=== PATIENT | female | born 1940 | race Caucasian/White ===

== ENCOUNTER 2023-02-20 07:19 | Observation (INO) ==
--- NOTE | 2023-01-22 14:39 | PAT Medication Instructions ---
Medication Instructions Date of Service January 22, 2023 Home Medications amlodipine 5 mg tablet 5 mg PO QAM aspirin 81 mg capsule 81 mg PO QAM atorvastatin 40 mg tablet 40 mg PO QAM calcium carbonate 500 mg-vitamin D3 3.125 mcg (125 unit) tablet 1 tab PO QAM DO NOT take the morning of surgery calcium carbonate 500 mg-vitamin D3 3.125 mcg (125 unit) tablet 1 tab PO QAM Take morning of surgery With a small sip of water, OTHERWISE NOTHING TO EAT OR DRINK AFTER MIDNIGHT: amlodipine 5 mg tablet 5 mg PO QAM aspirin 81 mg capsule 81 mg PO QAM (unless directed otherwise by surgeon) atorvastatin 40 mg tablet 40 mg PO QAM Other Notes If you have any questions please call us at [phone] or [phone] or [phone] or [phone]
--- NOTE | 2023-01-31 09:39 | Anesthesiology Consultation ---
Date of Service January 31, 2023 Assessment & Plan (1) Encounter for pre-operative examination: - COVID screening: Per assessment on 01/31: No known COVID-19 positive contacts or current COVID-19 related symptoms. Travel screen negative. Patient vaccinated. At surgeon discretion if preop Covid testing being done. - Outpatient joint assessment: Pt currently scheduled for inpatient pathway. If surgeon requests review for outpatient joint pathway, patient is not recommended candidate for outpatient joint program from anesthesia standpoint. - Surgery time: Patient states that she travels from far and surgery time would dictate whether or not she would not to travel the day before/get a hotel prior to surgery. Per iW[facility] at OR, surgeon's office arranges surgery order/time. Cyndi at surgeon's office made aware of patient's travel concerns. She states their office will coordinate surgery timing with patient. - Cardiology visit (01/30/23): "ECG is basically unchanged from study done 12/20/2021 ECG done today indicates sinus rhythm with PVCs, heart rate 60. LVH, NC WP, and nonspecific ST changes are noted. ECG is basically unchanged from study done 12/20/21. The patient does have history of abnormal ECG as well as stress test. She did have coronary CTA done on 10/28/18 With calcium score of 17. She was noted to have 50% stenosis in the mid LAD.. Echocardiogram from 07/10/2018 indicated a normal EF at 55 to 60%. She is currently asymptomatic. Cardiac testing is not required prior to surgery.. Patient would be considered low cardiovascular risk candidate. Do not recommend further invasive or noninvasive cardiac testing procedures prior to proceeding with knee replacement ." Chart Review Chart Review: Acceptable Risk for Surgery and Patient seen in Pre Admission Testing Teaching & Discussion Pre-Anesthesia Teaching/Discussion Notes: Instructed NPO after midnight before surgery,except medications with 15 cc of water. Medication instructions provided according to the PAT guidelines. History Surgery Operation Date: 02/20/23 13:20 Proposed Procedures p Right Total Knee Arthroplasty - Mars Cleveland DO Height/Weight Height: 5 ft 4 in Weight: 72 kg Allergies Allergy/AdvReac Type Severity Reaction Status Date / Time codeine AdvReac Intermediate Heart Verified 01/31/23 10:04 racing Medications Home Medications Medication Instructions Recorded Confirmed Last Taken amlodipine 5 mg tablet 5 mg PO QAM 01/22/23 01/22/23 Unknown aspirin 81 mg capsule 81 mg PO QAM 01/22/23 01/22/23 Unknown atorvastatin 40 mg tablet 40 mg PO QAM 01/22/23 01/22/23 Unknown calcium carbonate 500 mg-vitamin 1 tab PO QAM 01/22/23 01/22/23 Unknown D3 3.125 mcg (125 unit) tablet Past Medical History Medical History History of left bundle branch block (LBBB) Per cardiology records HTN (hypertension) Follows with [facility] cardiology Hyperlipidemia Exercise / Class Metabolic Activity II 4-5 Yardwork/Stairs/Walk up hill (one FS (no CP, no SOB)) Past Family History Family History Other No family history of adverse response to anesthesia Past Surgical History Surgical History History of lumbar surgery Hx of arthroscopic knee surgery Hx of cholecystectomy + APPENDECTOMY Hx of colonoscopy Hx of tubal ligation Past Anesthesia History No Hx of Anesthesia Complications and No Family Hx of Anesthesia Complications History of PONV No Hx of PONV and No Hx of Motion Sickness Social History Smoking Status: Never smoker Do You Dip or Chew Tobacco: No Hx Alcohol Use: Yes alcohol intake frequency: a few times a week Hx Substance Use: No substance use type: does not use Review of Systems Patient denies chest pain, shortness of breath, dyspnea on exertion, fever, chills, cough, wheezing, palpitations. Physical Exam Vital Signs VITALS BP 146/83 P 69 TEMP 97.9 SP02 98%RA RESP 16 PHYSICAL Full cervical extension range of motion. Full TMJ range of motion. TMD 3 finger breaths Mallampati Score 3 Dentition: intact Lungs: clear throughout to auscultation Cardiac: regular rate and rhythm, no murmurs noted Spine: normal Carotid arteries: negative bruit Extremities: no LE edema Lab Results Anesthesia Preop Results Results Anesthesia Widget: WBC 7.51 K/ul (4.8-10.8) 01/31/23 Hgb 13.7 g/dl (12.0-16.0) 01/31/23 Hct 41.2 % (37.0-47.0) 01/31/23 Plt 327 K/uL (130-400) 01/31/23 PT 10.0 Seconds (9.0-12.0) 01/31/23 PTT 27.2 Seconds (21.0-31.0) 01/31/23 INR 0.9 (0.9-1.1) 01/31/23 HA1c 5.4 % (4.5-5.6) 01/31/23 Urine Color Yellow 01/31/23 Urine Appearance Clear (Clear) 01/31/23 Urine pH 8.0 (4.5-7.5) H 01/31/23 Urine Specific Bath 1.008 (1.000-1.030) 01/31/23 Urine Protein Negative (Negative) 01/31/23 Urine Glucose (UA) Negative (Negative) 01/31/23 Urine Ketones Negative (Negative) 01/31/23 Urine Blood Trace (Negative) H 01/31/23 Urine Nitrite Negative (Negative) 01/31/23 Urine Bilirubin Negative (Negative) 01/31/23 Urine Urobilinogen Negative (Negative) 01/31/23 Urine Leukocyte Esterase Negative (Negative) 01/31/23 Urine WBC (Auto) 0 /hpf (0-5) 01/31/23 Urine RBC (Auto) 0-4 /hpf (0-4) 01/31/23 Urine Hyaline Casts (Auto) 0 /lpf (0-5) 01/31/23 Urine Epithelial Cells (Auto) 0-5 /lpf (0-5) 01/31/23 Urine Bacteria (Auto) Negative (Negative) 01/31/23 Blood Type O Positive 01/31/23 Antibody Screen NEGATIVE 01/31/23 Testing Laboratory Results 01/10/23 SODIUM 140 POTASSIUM 3.8 CHLORIDE 104 CO2 32.0 BUN 19.0 CREATININE 0.58 GLUCOSE 83 Electrocardiogram Date: 01/30/23 SR with PVCs at 60bpm. LVH. PRWP. NS ST changes. Chest X-Ray Date: 01/31/23 FINDINGS: Lung volumes are normal. Lungs are clear. There is no pneumothorax or pleural effusion. Cardiac size is normal. Mediastinal contours are normal. There is no evidence for pulmonary edema. IMPRESSION: No acute cardiopulmonary findings. Echocardiogram Date: 07/10/18 EF 55 to 60%. Mild AI/MR. Stress Test Date: 07/10/18 Type: exercise Report difficult to read- Per cardiology records, "Exercise Treadmill Test- (07/10/2018) Ischemic ECG stage I Tam; Accelerated HR response; Alternating LBBB" Subsequent coronary CTA 10/2018* > Per cardiology preop evaluation 01/30/23, "cardiac testing is not required prior to surgery" Other Testing CTA Heart Date: 10/28/18 Total [facility] coronary artery calcium score (CACS) is 17.5. Approximately 50% stenosis in the mid LAD artery. COVID-19 Risk Screen Screening Information COVID-19 Screen Date: 01/31/23 Exposure 21 Days Family/Household +COVID Last 21 Days: No Exposure 10 Days Any COVID Exposure Last 10 Days: No Symptoms Last 10 Days Experienced COVID Sx Last 10 Days: No + COVID 0-90 Days COVID + in Last 0-90 Days: No
--- NOTE | 2023-02-02 08:39 | History & Physical Report ---
Date of Service February 02, 2023 date of surgery: 02/20/23 Procedure: Right Total Knee Arthroplasty Surgeon: Mars Cleveland Assessment & Plan (1) Arthritis of right knee: Plan: Presents for evaluation of chronic right knee pain, states she did have a prior right knee arthroscopy several years ago. She has recently undergone viscosupplementation series without any relief. She has tried Tylenol and anti- inflammatories. Her x-rays show advanced degenerative changes to the right knee she has [id number] lateral compartment with valgus alignment, subchondral sclerosis peripheral osteophytes noted. We discussed further treatment options she would like to proceed with surgical invention. Therefore plan will be right total knee arthroplasty, [employer] patient matched. We will plan on overnight stay at the hospital with discharge home with home health physical therapy. Will place on aspirin 81 mg twice a day for 1 month DVT prophylaxis, she states she is allergic to codeine therefore would likely try tramadol postoperatively. She will need PCP clearance from Dr. Dale as well as cardiac clearance from [facility] The risks and benefits have been discussed including, but not limited to, risk of infection, nerve injury, stiffness, loss of motion, failure to improve, etc. Reasonable outcomes and options of treatment were discussed. An explanation of appropriate alternatives to the procedure that may be advantageous were discussed and their risks and benefits, as well as the risks and benefits of not proceeding with treatment. I offered to answer any additional inquiries concerning the treatment involved. All the patient's questions were answered. The patient is agreeable, understanding of the treatment plan and alternatives, and wishes to proceed with the treatment plan. History of Present Illness Chief Complaint: Right knee pain Primary Care Provider: NO PCP Nikkie is a pleasant 82-year-old female who presents for preop evaluation prior to right total knee replacement. She states that she been having pain in his knee for many years now which is gradually worsened to the point is now affecting her daily activities. She had previous right knee arthroscopy approximately 8 to 10 years ago, she is also undergone viscosupplementation without relief. She tried oral anti-inflammatories and Tylenol as well. This point time is failed conservative measures and like to proceed with a right total knee replacement Allergies Allergy/AdvReac Type Severity Reaction Status Date / Time codeine AdvReac Intermediate Heart Verified 01/31/23 10:04 racing Home Medications Medication Instructions Recorded Confirmed Type amlodipine 5 mg tablet 5 mg PO QAM 01/22/23 01/22/23 History aspirin 81 mg capsule 81 mg PO QAM 01/22/23 01/22/23 History atorvastatin 40 mg tablet 40 mg PO QAM 01/22/23 01/22/23 History calcium carbonate 500 mg-vitamin 1 tab PO QAM 01/22/23 01/22/23 History D3 3.125 mcg (125 unit) tablet Past Med/Surg History Medical History HTN (hypertension) [facility], 01/2023 Hyperlipidemia Surgical History History of lumbar surgery Hx of arthroscopic knee surgery Hx of cholecystectomy + APPENDECTOMY Hx of colonoscopy Hx of tubal ligation Family History Other No family history of adverse response to anesthesia Social History Smoking Status: Never smoker Second Hand Exposure: No; Do You Dip or Chew Tobacco: No; Hx Alcohol Use: Yes Hx Substance Use: No Preferred Language: Maori Communication Ability: Effective 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: No Beliefs That Will Affect Care: None Current Living Situation: Significant Other Feels Safe at Home: Yes Assistive Devices: Glasses Review of Systems Review of Systems: All systems reviewed & are unremarkable except as noted in HPI & below Constitutional: no fever, no chills and no sweats Respiratory: no cough and no dyspnea Cardiovascular: no chest pain, no dyspnea and no orthopnea Gastrointestinal: no abdominal pain, no nausea and no vomiting Musculoskeletal: as per Subjective / HPI Physical Exam Physical Exam: HT: 5ft 4in WT: 72kg Constitutional: WD/WN, vitals as above no acute distress Respiratory: normal respiratory effort, lungs clear to auscultation no respiratory distress, no labored breathing and does not use accessory muscles Cardiovascular: RRR, no murmur, no edema Gastrointestinal (Abdomen): normal bowel sounds, soft, nontender, no hepatosplenomegaly Musculoskeletal: Knee: + knee abnormal to inspection (Right Knee: ), + effusion (+1 effusion), + surgical incision (well healed portals), + limited ROM of knee (ROM 0/3/110), + knee ROM with crepitation, + joint line tenderness (medial joint line) and + Denise's sign positive; no deformity, no skin erythema, no ecchymosis, no valgus laxity, no varus laxity, anterior drawer test negative, Tra's sign negative and pivot shift test negative Results & Data Results & Data Diagnostic Findings Right Knee X-ray: Right knee series showing advanced degenerative changes to the right knee, narrowing of the lateral compartment and patello-femoral joint with patellar spurring noted, and subchondral sclerosis noted. no acute bony pathology noted.
[~2023-02-20 07:19] MED LIST: ACETAMINOPHEN 500 MG TAB PO SCH; BUPIVACAINE 0.5 % 5 MG/1 ML PF 10ML VIAL ONE; CeleBREX 200 MG CAP PO SCH; FAMOTIDINE 20 MG TAB PO SCH; GABAPENTIN 300 MG CAP PO SCH; LR 500ML BOLUS, THEN 15ML/HR IV SCH; METOCLOPRAMIDE HCL 10 MG TABLET PO SCH; PREGABALIN 75 MG CAP PO SCH; ROPIVACAINE 0.5% 5 MG/ML 30 ML VIAL ONE; ROPIVACAINE 0.5% HCL/PF 150 MG, BUPIVACAINE 0.75% MPF 20 ML, EPINEPHrine 30MG/30ML (OR ... INSTIL SCH; TRANEXAMIC ACID 1,000 MG **IV Intra-op IV SCH; TRANEXAMIC ACID 1,000 MG **IV Pre-op IV SCH; ceFAZolin 2000MG 2,000 MG/15 ML SYR IV SCH; dexAMETHasone 4 MG TAB PO SCH
--- NOTE | 2023-02-20 08:46 | History & Physical Bridge Note ---
Date of Service February 20, 2023 History & Physical Bridge Note I have examined the patient, reviewed the History & Physical and in the interval since the performance of the History & Physical I have noted the following changes of clinical significance: no changes noted
[2023-02-20] MEDS ORDERED: MIDAZOLAM HCL 1 MG/ML 2ML VIAL ONE (10:25)
[2023-02-20] MEDS ORDERED: fentaNYL citrate PF 100 MCG/2 ML VIAL ONE (10:25)
[2023-02-20] MEDS ORDERED: ONDANSETRON INJ 2 MG/ML 2 ML VIAL ONE (10:33)
[2023-02-20] MEDS ORDERED: PROPOFOL IV EMULSION 10 MG/ML 20 ML VIAL IV ONE (10:33)
[2023-02-20] MEDS ORDERED: ATROPINE SULFATE 0.1 MG/ML 10ML SYR IV PRN (11:00)
[2023-02-20] MEDS ORDERED: ePHEDrine sulfate 50 MG/ML AMP IV PRN (11:00)
[2023-02-20] MEDS ORDERED: fentaNYL citrate PF 100 MCG/2 ML VIAL IV PRN (11:00)
[2023-02-20] MEDS ORDERED: ONDANSETRON INJ 2 MG/ML 2 ML VIAL IV PRN ×2 (11:00→14:05)
[2023-02-20] MEDS ORDERED: HYDROmorphone INJ 1 MG/ML SYRINGE IV PRN (11:00)
[2023-02-20] MEDS ORDERED: ORTHO JOINT ANESTHETIC ONE (11:15)
[2023-02-20] MEDS ORDERED: PHENYLEPHRINE HCL 10 MG/ML VIAL ONE (11:38)
--- NOTE | 2023-02-20 12:15 | Operative Report ---
Post Operative Report Pre & Post Diagnosis Operation Date: 02/20/23 10:15 Pre-Op Diagnosis: Osteoarthritis knee right. Post-Op Diagnosis: Osteoarthritis knee right. I identified the patient and participated in the time-out.: Yes Procedure Operation Date: 02/20/23 10:15 Actual Procedures p Right Total Knee Arthroplasty(Right)Utilizing [employer].Meter journey 2 patient matched total knee arthroplasty size femur 4 tibia 4 poly 10 patella 29 donald Cleveland DO Surgeon Mars Cleveland DO Bird Raiser richard SCOTT Estimated Blood Loss 5 Findings Consistent with Post-Op Diagnosis Patient presents with severe end-stage tricompartmental degenerative joint disease right knee with varus alignment subchondral sclerosis marginal osteophytes and subchondral cystic changes eburnated [id number] with a moderate to large effusion Specimens Bone and cartilage Drains Medium bore Hemovac Anesthesia Type MAC Spinal Regional Complications none Disposition Accompanied Patient To Recovery: No Disposition: Recovery Room Indications Patient presents with severe end-stage DJD after failed attempted conservative management occluding physical therapy anti-inflammatories relative rest activity modification corticosteroid injection viscosupplementation Description of Procedure After proper prepping and draping of the Right lower extremity anterior midline incision was made over the region of the extensor extensor mechanism after meticulous hemostasis was obtained and maintained in subcutaneous tissues a medial parapatellar incision was made The patella was subluxed lateralward the medial lateral gutter were cleaned from any hypertrophic synovitis and scar tissue of the distal femoral block was placed and the distal femoral osteotomy cut was made subsequently the chamfers anterior and posterior osteotomy cuts were made utilizing the 4-in-1 block the tibia was subsequently subluxed anteriorward medial and ateral meniscal remnants were excised in their entirety remnants of the anterior and posterior cruciate ligaments were excised in their entirety excellent exposure of the proximal tibia was obtained the tibial osteotomy guide was placed on the proximal tibial osteotomy cut was made once again the knee was irrigated with copious amounts of sterile saline solution the patella was subsequently everted lateralward thickened scar tissue around the patella was removed the patella was subsequently cut utilizing a freehand technique and was drilled prepared for final preparation and placement of patella socially flexion-extension gaps were checked and the equal and symmetric trials were placed to the appropriate femoral and tibial trials with poly-spacer being placed for equal flexion and extension gaps and full range of motion including extension to 0 and flexion to 140 the trial components after having been taken to recovery range of motion was subsequently removed meticulous hemostasis was obtained and maintained subsequently a knee block injection of joint cocktail including ropivacaine 0.5% 150 mg. Bupivacaine 0.5% epinephrine 1-200,030 mL's toradol 30 mg dexamethasone 4 mg ketamine 10 mg clonidine 100 micrograms normal saline solution 30 mg was infiltrated into the soft tissues of the posterior knee medial lateral gutters and periosteal synovium special attention was paid to protect neurovascular structures at all times subsequently trial components having been removed the knee was irrigated with sterile saline solution. debris was removed the proximal tibia was subsequently prepared and was made ready for the placement of the tibial component tibial component was also cemented and tamped into position the femoral component was subsequently placed and cemented in the position the patellar component was subsequently cemented in position because hemostasis once again obtained and maintained wound having been thoroughly irrigated with debridement and debridement lavage was performed as well as a medial parapatellar incision closed with #1 Vicryl in interrupted fashion subcutaneous was closed with #2 Vicryl skin was closed with skin clips. PA-C was necessary for prepping and drapping as well as wound closure of deep fascia Sub cutaneous tissue and skin and was necessary for the case. A sterile compressive dressing was placed patient was taken to recovery in stable condition of report dictated by Cristofer I attest to the content of the Intraoperative Record and any orders documented therein. Any exceptions are noted below.Due to the complex nature of the procedure, the entire surgery was performed with the operational assistance of Richard SCOTT. The chef assistant, under direct supervision, was involved in the actual performance of all aspects of the surgical procedure including hemostasis, tissue retraction and incision, instrument management, patient positioning, and wound closure. I attest to the content of the Intraoperative Record and any orders documented therein. Any exceptions are noted below.
--- NOTE | 2023-02-20 13:36 | Anesthesiology Progress Note ---
Date of Service February 20, 2023 Anesthesia Post Procedure Vital Signs Vital Signs: Temp Pulse Resp BP Pulse Ox O2 Del Method 02/20/23 13:20 61 13 101/58 L 96 Room Air 02/20/23 13:10 88 12 105/59 L 96 Room Air 02/20/23 13:00 97.3 F L 79 12 119/59 L 96 Room Air 02/20/23 08:16 97.5 F L 65 21 152/76 H 98 Room Air Pain Intensity Right Knee: Pain Intensity: 0 Transfer of Care Handoff Completed per policy Notes Mental Status: alert / awake / arousable and participated in evaluation Patient Amnestic to Procedure: Yes Nausea / Vomiting: adequately controlled Pain: adequately controlled Airway Patency, RR, SpO2: stable & adequate BP & HR: stable & adequate Hydration State: stable & adequate Neuraxial Anesthesia: was administered and sensory block is resolving Anesthetic Complications: no major complications apparent and Pt Satisfied with anesthetic care
[2023-02-20] MEDS ORDERED: diphenhydrAMINE 50 MG/ML VIAL IV PRN (14:05)
[2023-02-20] MEDS ORDERED: HYDROmorphone INJ 0.5 MG/0.5 ML SYR IV PRN (14:05)
[2023-02-20] MEDS ORDERED: NALOXONE HCL 0.4 MG/1 ML VIAL/CARP IV PRN (14:05)
[2023-02-20] MEDS ORDERED: MAGNESIUM HYDROXIDE SUSP 30 ML UDC PO PRN (14:05)
[2023-02-20] MEDS ORDERED: bisacodyL 10 MG SUPP PR PRN (14:05)
--- NOTE | 2023-02-20 14:09 | XRay Report ---
XR knee RT 1 or 2V routine CLINICAL HISTORY: Surgical Post Op TECHNIQUE: 2 views of the right knee were obtained. Comparison: None available at the time of this dictation. FINDINGS: Patient is status post total knee arthroplasty with expected postsurgical changes including soft tiss ue swelling and subcutaneous emphysema. No periarticular lucency or hardware fracture is seen. IMPRESSION: Expected postoperative appearance status post placement of total knee arthroplasty. ACT 112: Negative or not required by law. Electronically signed by: Aaron Navarrete M.D. 02/20/2023 2:08 PM
[2023-02-20] MEDS: SODIUM CHLORIDE 0.9% 1000ML 1,000 ML IV SCH (15:25)
[2023-02-20] MEDS: ACETAMINOPHEN 500 MG TAB PO SCH ×2 (15:26→21:24)
[2023-02-20] MEDS: traMADol HCL 50 MG TABLET PO PRN (18:12)
[2023-02-20] MEDS: ceFAZolin 2000MG 2,000 MG/15 ML SYR IV SCH (19:57)
[2023-02-20] MEDS: DOCUSATE SODIUM 100 MG CAP PO SCH (20:03)
[2023-02-20] MEDS: ASPIRIN 81 MG ECTAB PO SCH (20:03)
[2023-02-20] MEDS ORDERED: SENNA 8.6 MG TAB PO SCH (21:00)
[2023-02-21] MEDS: SODIUM CHLORIDE 0.9% 1000ML 1,000 ML IV SCH (01:21)
[2023-02-21] MEDS: ceFAZolin 2000MG 2,000 MG/15 ML SYR IV SCH (03:32)
[2023-02-21] MEDS: ACETAMINOPHEN 500 MG TAB PO SCH (06:15)
--- NOTE | 2023-02-21 07:41 | Orthopedic Progress Note ---
Date of Service February 21, 2023 Assessment & Plan (1) Arthritis of right knee: Plan: Postop day 1 status post right total knee arthroplasty. PT/OT protocols. Weightbearing as tolerated. DVT prophylaxis-aspirin p.o. twice daily, SCDs, LACHELLE mejia Pain management as written. Morning labs pending. DC planning-patient is planning for home health services upon discharge. We will review labs when available. Planning for discharge home today if labs are benign and she is progressing with her PT. Admission and Anticipated Discharge Date Admission Date: February 20, 2023 Subjective Postop day 1 Patient sitting at the bedside in her chair. Awake and alert. No complaints this morning. Pain is controlled. Denies shortness of breath, chest pain, lightheadedness. She is hoping to go home today. Physical Exam Physical Exam: Dressings are clean, dry, and intact. Calves are soft nontender. Neurovascular intact. Toes are mobile. She has good dorsiflexion and plantarflexion of her right foot. Hemovac drainage was 100 ml's from the previous shift. Results & Data Vital Signs (Past 12 Hours) Vital Signs Temp Pulse Resp BP Pulse Ox O2 Del Method 02/21/23 07:09 36.3 C L 50 L 18 112/62 95 Room Air 02/21/23 03:38 36.5 C 52 L 16 123/71 98 Room Air 02/20/23 23:58 36.3 C L 58 L 18 98/59 L 95 Room Air 02/20/23 19:46 36.9 C 55 L 18 116/72 97 Room Air
[2023-02-21 07:56] LABS: Hematocrit (blood only) 32.6 % (37.0-47.0); Hemoglobin 10.6 g/dl (12.0-16.0); Mean Corpuscular Hemoglobin 31.4 pg (25.0-34.0); Mean Corpuscular Hgb Conc 32.5 g/dL (32.0-36.0); Mean Corpuscular Volume 96.4 fL (80.0-100.0); Mean Platelet Volume 10.2 fL (9.4-12.4); Platelet Count 247 K/uL (130-400); RDW Coefficient of Variation 13.2 % (11.5-14.5); RDW Standard Deviation 46.6 fL (36.4-46.3); Red Blood Count 3.38 M/uL (4.20-5.40); White Blood Count 15.19 K/ul (4.8-10.8)
[2023-02-21 08:14] LABS: Calcium 7.8 mg/dl (8.6-10.3); Creatinine Clr Calc Pharmacy 87.1 ml/min; Est GFR (African American) 105.1 ml/min; Est GFR (Non-African American) 90.7 ml/min; Potassium 3.9 mmol/L (3.5-5.1)
[2023-02-21] MEDS ORDERED: ATORVASTATIN 40 MG TAB PO SCH (09:00)
[2023-02-21] MEDS ORDERED: MULTIVITAMIN TAB PO SCH (09:00)
[2023-02-21] MEDS ORDERED: amLODIPine BESYLATE 5 MG TAB PO SCH (09:00)
[2023-02-21] MEDS ORDERED: CALCIUM 600MG + VIT D 400 IU TAB PO SCH (09:00)
[2023-02-21] MEDS: ASPIRIN 81 MG ECTAB PO SCH (09:15)
[2023-02-21] MEDS: DOCUSATE SODIUM 100 MG CAP PO SCH (09:15)
[2023-02-21] MEDS: traMADol HCL 50 MG TABLET PO PRN (11:17)
--- NOTE | 2023-02-22 15:59 | Discharge Summary ---
Date of Service February 22, 2023 Admission HPI Per Admitting Provider Grayson is a pleasant 82-year-old female who presents for preop evaluation prior to right total knee replacement. She states that she been having pain in his knee for many years now which is gradually worsened to the point is now affecting her daily activities. She had previous right knee arthroscopy approximately 8 to 10 years ago, she is also undergone viscosupplementation without relief. She tried oral anti-inflammatories and Tylenol as well. This point time is failed conservative measures and like to proceed with a right total knee replacement Admission Exam Per Admitting Provider Patient:GRAYSON DIAZ Admit Date:01/12/23 MR#:[id number] Att Phy:Mars Cleveland D.O. Acct ID:[id number] Yolanda Phy:PCP,NO Date:1940 Fam Phy: Age:82 Location:[facility] Sex:F Room/Bed: cc: Mars Cleveland D.O.~ *NOTICE TO RECEIVING REPUBLICAN/AGENCY This information is strictly Confidential and protected under [place] law. [place] law prohibits you from making any further disclosure of this information unless further disclosure is expressly permitted by the written consent of the person to whom it pertains or is authorized by law. A general authorization for the release of medical or other information is not sufficient for this purpose. Hospital accepts no responsibility if the information is made available to any other person, INCLUDING THE PATIENT. Date of Service February 02, 2023 date of surgery: 02/20/23 Procedure: Right Total Knee Arthroplasty Surgeon: Mars Cleveland Assessment & Plan (1) Arthritis of right knee: Plan: Presents for evaluation of chronic right knee pain, states she did have a prior right knee arthroscopy several years ago. She has recently undergone viscosupplementation series without any relief. She has tried Tylenol and anti- inflammatories. Her x-rays show advanced degenerative changes to the right knee she has [id number] lateral compartment with valgus alignment, subchondral sclerosis peripheral osteophytes noted. We discussed further treatment options she would like to proceed with surgical invention. Therefore plan will be right total knee arthroplasty, [facility] [employer] patient matched. We will plan on overnight stay at the hospital with discharge home with home health physical therapy. Will place on aspirin 81 mg twice a day for 1 month DVT prophylaxis, she states she is allergic to codeine therefore would likely try tramadol postoperatively. She will need PCP clearance from Dr. Dale as well as cardiac clearance from [facility] The risks and benefits have been discussed including, but not limited to, risk of infection, nerve injury, stiffness, loss of motion, failure to improve, etc. Reasonable outcomes and options of treatment were discussed. An explanation of appropriate alternatives to the procedure that may be advantageous were discussed and their risks and benefits, as well as the risks and benefits of not proceeding with treatment. I offered to answer any additional inquiries concerning the treatment involved. All the patient's questions were answered. The patient is agreeable, understanding of the treatment plan and alternatives, and wishes to proceed with the treatment plan. History of Present Illness Chief Complaint: Right knee pain Primary Care Provider: LAINA PCP Grayson is a pleasant 82-year-old female who presents for preop evaluation prior to right total knee replacement. She states that she been having pain in his knee for many years now which is gradually worsened to the point is now affecting her daily activities. She had previous right knee arthroscopy approximately 8 to 10 years ago, she is also undergone viscosupplementation without relief. She tried oral anti-inflammatories and Tylenol as well. This point time is failed conservative measures and like to proceed with a right total knee replacement Allergies Allergy/AdvReac Type Severity Reaction Status Date / Time codeine AdvReac Intermediate Heart Verified 01/31/23 10:04 racing Home Medications Medication Instructions Recorded Confirmed Type amlodipine 5 mg tablet 5 mg PO QAM 01/22/23 01/22/23 History aspirin 81 mg capsule 81 mg PO QAM 01/22/23 01/22/23 History atorvastatin 40 mg tablet 40 mg PO QAM 01/22/23 01/22/23 History calcium carbonate 500 mg-vitamin 1 tab PO QAM 01/22/23 01/22/23 History D3 3.125 mcg (125 unit) tablet Past Med/Surg History Medical History HTN (hypertension) [facility] [facility], 01/2023Hyperlipidemia Surgical History History of lumbar surgery Hx of arthroscopic knee surgery Hx of cholecystectomy + APPENDECTOMYHx of colonoscopy Hx of tubal ligation Family History Other No family history of adverse response to anesthesia Social History Smoking Status: Never smoker Second Hand Exposure: No; Do You Dip or Chew Tobacco: No; Hx Alcohol Use: Yes Hx Substance Use: No Preferred Language: Setswana Communication Ability: Effective 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: No Beliefs That Will Affect Care: None Current Living Situation: Significant Other Feels Safe at Home: Yes Assistive Devices: Glasses Review of Systems Review of Systems: All systems reviewed & are unremarkable except as noted in HPI & below Constitutional: no fever, no chills and no sweats Respiratory: no cough and no dyspnea Cardiovascular: no chest pain, no dyspnea and no orthopnea Gastrointestinal: no abdominal pain, no nausea and no vomiting Musculoskeletal: as per Subjective / HPI Physical Exam Physical Exam: HT: 5ft 4in WT: 72kg Constitutional: WD/WN, vitals as above no acute distress Respiratory: normal respiratory effort, lungs clear to auscultation no respiratory distress, no labored breathing and does not use accessory muscles Cardiovascular: RRR, no murmur, no edema Gastrointestinal (Abdomen): normal bowel sounds, soft, nontender, no hepatosplenomegaly Musculoskeletal: Knee: + knee abnormal to inspection (Right Knee: ), + effusion (+1 effusion), + surgical incision (well healed portals), + limited ROM of knee (ROM 0/3/110), + knee ROM with crepitation, + joint line tenderness (med ial joint line) and + Denise's sign positive; no deformity, no skin erythema, no ecchymosis, no valgus laxity, no varus laxity, anterior drawer test negative, Tra's sign negative and pivot shift test negative Signed By: <Electronically signed by Rogelio Tracy PA-C> 02/02/23 0857 <Electronically signed by Mars Cleveland DO> 02/06/23 1104 Created:02/02/23 0835 Principal Diagnosis Right knee osteoarthritis Discharge Data Allergies Allergy/AdvReac Type Severity Reaction Status Date / Time codeine AdvReac Intermediate Heart Verified 02/20/23 08:13 racing Procedures Performed Operation Date: 02/20/23 10:15 Actual Procedures p Right Total Knee Arthroplasty(Right) - Mars Cleveland DO Ordered Studies 02/20/23 05:00 US - OR guided needle placemen Routine Hospital Course (1) Arthritis of right knee: Patient:GRAYSON DIAZ Admit Date:02/20/23 MR#:[id number] Att Phy:Mars Cleveland,D.OMac Acct ID:[id number] Yolanda Phy:Anjana Dale DO Date:1940 Fam Phy: Age:82 Location:3N Sex:F Room/Bed:N387-2 cc: ~ *NOTICE TO RECEIVING REPUBLICAN/AGENCY This information is strictly Confidential and protected under [place] law. [place] law prohibits you from making any further disclosure of this information unless further disclosure is expressly permitted by the written consent of the person to whom it pertains or is authorized by law. A general authorization for the release of medical or other information is not sufficient for this purpose. Hospital accepts no responsibility if the information is made available to any other person, INCLUDING THE PATIENT. Date of Service February 21, 2023 Assessment & Plan (1) Arthritis of right knee: Plan: Postop day 1 status post right total knee arthroplasty. PT/OT protocols. Weightbearing as tolerated. DVT prophylaxis-aspirin p.o. twice daily, SCDs, LACHELLE hose Pain management as written. Morning labs pending. DC planning-patient is planning for home health services upon discharge. We will review labs when available. Planning for discharge home today if labs are benign and she is progressing with her PT. Admission and Anticipated Discharge Date Admission Date: February 20, 2023 Subjective Postop day 1 Patient sitting at the bedside in her chair. Awake and alert. No complaints this morning. Pain is controlled. Denies shortness of breath, chest pain, lightheadedness. She is hoping to go home today. Physical Exam Physical Exam: Dressings are clean, dry, and intact. Calves are soft nontender. Neurovascular intact. Toes are mobile. She has good dorsiflexion and plantarflexion of her right foot. Hemovac drainage was 100 ml's from the previous shift. Results & Data Vital Signs (Past 12 Hours) Vital Signs Temp Pulse Resp BP Pulse Ox O2 Del Method 02/21/23 07:09 36.3 C L 50 L 18 112/62 95 Room Air 02/21/23 03:38 36.5 C 52 L 16 123/71 98 Room Air 02/20/23 23:58 36.3 C L 58 L 18 98/59 L 95 Room Air 02/20/23 19:46 36.9 C 55 L 18 116/72 97 Room Air Signed By: <Electronically signed by Andrew Plasencia MD> 02/21/23 1708 <Electronically signed by Richard Blankenship PA-C> 02/21/23 0744 Created:02/21/23 0740 The status of this report isSigned. Total Time Total Time Spent Total Time Spent (In Minutes): 5 Discharge Plan Discharge Items Patient Disposition: Home - Home Health Services Reason For Visit: Osteoarthritis Knee Right Discharge Diagnosis: Osteoarthritis right knee Activity: Per Instructions section Weightbearing: Right weightbearing Weightbearing Comment: as tolerated with walker Non-emergency contact: Surgeon Call non-emergency contact if: you have any medication questions, your pain is not controlled, your temperature is above 101.5, your wound has increased redness and your wound has increased drainage Follow-up/Referrals: Mars Cleveland DO [Surgeon] - ( follow-up with Dr. Cleveland or his PA in 2 weeks from the day of your surgery for your first postoperative visit.) Anjana Dale DO [Primary Care Provider] - Diet: Regular Addtl Attending Provider Instructions: ACTIVITY RECOMMENDATIONS: SELF CARE INSTRUCTIONS AFTER TOTAL KNEE REPLACEMENT A. You may need to continue a physical therapy program after discharge from the hospital. There are several options available to you. Your doctor will assist you in selecting the best one for you. 1. An out-patient facility 2 to 3 times a week for therapy or home therapy. 2. Continue working on all exercises taught to you in the hospital. Your goals should be to increase bending of your knee to 90 degrees and beyond and to fully straighten your knee. B. You may progress at your own pace from walking with a walker or crutches to a cane; then to no assistive devices. C. Make walking a part of your daily routine. Be up as much as comfortable with rest periods throughout the day. Rest with leg elevation is very important. Use the ice wrap frequently for the first 3-4 weeks. D. There are no restrictions on activities. You may ride in a car, shop, participate in household appliances salesperson and all social activities. E. Wear the long elastic stockings (LACHELLE hose) 20 hours a day for 2 weeks after surgery. They can be removed several times a day for laundering and for a bath. F. You may shower, no tub baths until cleared by your doctor. SPECIAL CARE INSTRUCTIONS: VERY IMPORTANT TO READ AND REVIEW A. There are a few signs you need to watch for after you are home. Call [facility] if you notice any of the followin. Increased severe knee pain. Some pain is expected especially when you exercise. 2. Increased swelling in your leg or knee; pain or swelling of the calf muscle in either lower leg. 3. Any fluid drainage from the incision. 4. Shortness of breath or chest pain. B. Please call [facility] at if you have any concerns or questions about your operation or recovery. The doctor or his nurse will return your call promptly. C. You must take antibiotics before dental work, bladder, bowel or other surgery. Your doctor will provide you with a permanent care to carry describing this precaution. IMPORTANT: * REMEMBER TO TAKE ASPIRIN, 81 MG, TWICE DAILY FOR 4 WEEKS UNLESS OTHERWISE DIRECTED. THIS IS YOUR BLOOD THINNER. * HIGH RISK PATIENTS MAY BE PRESCRIBED A STRONGER BLOOD THINNER. THIS WILL BE PROVIDED AT DISCHARGE. * CALL IF INCREASED PAIN, REDNESS, DRAINAGE OR FEVER GREATER THAT 101. * WEAR LACHELLE HOSE 20 HOURS PER DAY FOR 2 WEEKS. * KAILA Dressing - This is a large suction dressing covering your incision. This will help pull any excess drainage from the wound and allow your incision to heal properly. You may shower with this if you can keep the unit outside of the shower. If any bleeding or leakage is noted please call your doctor's office. This will remain on your incision for 7 days and then should be removed. This can be done yourself or by the home nursing staff if applicable. The entire unit is disposable once removed. Once removed, keep incision clean and dry. If redness or drainage is noted, please call your surgeon. . * Once your kaila dressing has been removed, follow these wound care instructions. DERMABOND Prineo- This is a mesh tape dressing that is covered with glue. It should remain in place until the incision is properly healed, usually 10-14 days. This dressing is designed to naturally slough off. You may trim the excess mesh tape as it peels off. Incision may be briefly wet in a shower. Dry immediately by blotting with a clean, dry towel. Do not bath or swim until instructed by your doctor. Do not scratch, rub, or pick at the dressing. Do not apply any topical ointments or lotions until dressing is completely removed and/or instructed by your doctor. There may be a small piece of suture material at one end of your incision. Do not pull or trim this. If it is bothersome or catching on clothing, you may cover it with a band-aid. FOLLOW UP VISIT: If appointment is not already scheduled: Please call [facility] to make a follow-up appointment for 2 weeks after your surgery at . Pending Studies at Discharge: No Stand-Alone Forms: My [facility] [employer] Behind Sweat, Smoking Cessation Medications and DC Order Prescriptions: New acetaminophen [Tylenol Extra Strength] 500 mg Tablet 1,000 mg PO Q8 14 Days Qty: 84 0RF aspirin 81 mg Tablet,Delayed Release (Dr/Ec) 81 mg PO BID 30 Days Qty: 60 0RF polyethylene glycol 3350 [Miralax] 17 gram powder in packet 17 g PO DAILY PRN (Reason: constipation) Qty: 5 0RF tramadol 50 mg tablet 50 - 100 mg PO Q6H PRN (Reason: pain) Qty: 24 0RF cefadroxil 500 mg capsule 500 mg PO BID Qty: 28 1RF Continued atorvastatin 40 mg Tablet 40 mg PO QAM amlodipine 5 mg Tablet 5 mg PO QAM calcium carbonate-vitamin D3 500 mg-3.125 mcg (125 unit) Tablet 1 tab PO QAM Discontinued aspirin 81 mg Capsule 81 mg PO QAM Krames/Other Patient Handouts: Knee Replacement Total Dc Admission Data Admit Date/Time: 02/20/23 13:10 Attending Provider: Mars Cleveland Admit Provider: Mars Cleveland Primary Care Provider: Anjana Dale Other Interventions: Discharge Summary Assessment (RN) Last Done: 02/21/23 07:30
== END 2023-02-21 11:40 | disposition home health service (06) ==
LOC: 3N 07:19 → ASU 07:19